=== PATIENT | male | born 1990 | race African-American/Black ===

== ENCOUNTER 2023-01-21 14:06 | Emergency (ER) | payer OTHER ==
[~2023-01-21] VITALS: Ht 180.3 cm; Wt 74.8 kg
[2023-01-21 14:49] LABS: BASOPHILS % (AUTO) 0.6 % (0.0-2.0); EOSINOPHILS # (AUTO) 0.1 K/uL (0.0-0.7); EOSINOPHILS % (AUTO) 2.4 % (0.0-6.0); HEMATOCRIT 38 % (39-51); HEMOGLOBIN 12.4 g/dL (13.5-17.5); LYMPHOCYTES # (AUTO) 1.5 K/uL (0.8-4.8); LYMPHOCYTES % (AUTO) 30.3 % (20.0-44.0); MEAN CORPUSCULAR HEMOGLOBIN 33 PG (26.0-33.0); MEAN CORPUSCULAR HGB CONC 33 g/dl (31.0-36.0); MEAN CORPUSCULAR VOLUME 100 fL (80-96); MONOCYTES # (AUTO) 0.6 K/uL (0.1-1.30); MONOCYTES % (AUTO) 11.6 % (2.0-12.0); NEUTROPHILS # (AUTO) 2.8 K/uL (1.8-8.9); NEUTROPHILS % (AUTO) 55.1 % (43.0-81.0); PLATELET COUNT (AUTO) 309 K/uL (150-450); RED BLOOD CELL COUNT(AUTO) 3.74 MIL/uL (4.5-6.0); RED CELL DISTRIBUTION WIDTH 14.6 % (11.5-15.0); WHITE BLOOD COUNT (AUTO) 5.1 K/uL (4.3-11.0)
[2023-01-21 14:56] LABS: CALCIUM, SERUM 8.4 mg/dL (8.5-10.1); CREATININE 0.7 mg/dL (0.6-1.3); POTASSIUM 3.6 mmol/L (3.5-5.1)
[2023-01-21 15:03] LABS: ALBUMIN 3.6 g/dL (3.4-5.0); BILIRUBIN,DIRECT 0.1 mg/dL (0.0-0.2); BILIRUBIN,TOTAL 0.2 mg/dL (0.2-1.0); SALICYLATE 0.9 mg/dL (2.8-20.0); TOTAL PROTEIN, SERUM 6.9 g/dL (6.4-8.2)
[2023-01-21 20:34] LABS: BARBITURATE, URINE NEGATIVE (NEGATIVE); BENZODIAZEPINE, URINE NEGATIVE (NEGATIVE); CANNABINOID, URINE NEGATIVE (NEGATIVE); COCCAINE, URINE NEGATIVE (NEGATIVE); OPIATE, URINE NEGATIVE (NEGATIVE); PHENCYCLIDINE SCREEN,URINE NEGATIVE (NEGATIVE)
[2023-01-21 20:35] LABS: AMPHETAMINE, URINE POSITIVE (NEGATIVE)
[2023-01-21 20:45] LABS: APPEARANCE,URINE CLEAR (CLEAR); BILIRUBIN,URINE NEGATIVE (NEGATIVE); BLOOD, URINE TRACE-INTA Ery/uL (NEGATIVE); COLOR,URINE YELLOW (YELLOW); KETONES,URINE TRACE mg/dL (NEGATIVE); LEUKOCYTE ESTERASE ,URINE NEGATIVE (NEGATIVE); NITRITE, URINE NEGATIVE (NEGATIVE); PH,URINE 5.5 (5.0-8.0); PROTEIN,URINE TRACE mg/dl (NEGATIVE); UGLUCOSE NEGATIVE (NEGATIVE)
[2023-01-21 20:54] LABS: ADD URINE CULTURE NO; BACTERIA,URINE 1+ /HPF (None Seen); MUCUS,URINE Few /LPF (None Seen); RBC,URINE 0-2 /HPF (0-2); SQUAMOUS EPITHELIAL CELL,UR None Seen /HPF (None Seen); WBC,URINE 0-2 /HPF (0-3)
[2023-01-21 21:14] VITALS: BP 131/85; TEMP 98.1; O2SAT 100
== END 2023-01-21 21:14 | disposition home or self-care (01) ==
LOC: ER 14:06
DX: F10.129 Alcohol abuse with intoxication, unspecified (principal); E11.9 Type 2 diabetes mellitus without complications; Y90.8 Blood alcohol level of 240 mg/100 ml or more
CPT/HCPCS: 36415; 80048-TC; 80076-TC; 81001; 82962-TC; 85025-TC; G0480

== ENCOUNTER 2024-06-09 20:02 | Inpatient (IN) | payer OTHER ==
[~2024-06-09] VITALS: Ht 180.3 cm; Wt 77.1 kg
[2024-06-09] MEDS ORDERED: CEFEPIME 1 GM VIAL ONE (21:03)
[2024-06-09] MEDS ORDERED: VANCOMYCIN 1 GM /D5W 250 ML PB IV ONE (21:03)
[2024-06-09] MEDS ORDERED: ACETAMINOPHEN ES 500 MG TABLET ONE (21:04)
[2024-06-09] MEDS ORDERED: IOHEXOL-300 100 ML VIAL IV ONE (21:11)
[2024-06-09] MEDS ORDERED: IV NS 0.9% 250 ML IV ONE (21:11)
[2024-06-09 21:14] LABS: BASOPHILS % (AUTO) 0.3 % (0.0-2.0); HEMATOCRIT 36 % (39-51); HEMOGLOBIN 11.9 g/dL (13.5-17.5); LYMPHOCYTES # (AUTO) 0.5 K/uL (0.8-4.8); LYMPHOCYTES % (AUTO) 8.7 % (20.0-44.0); MEAN CORPUSCULAR HEMOGLOBIN 33 PG (26.0-33.0); MEAN CORPUSCULAR HGB CONC 33 g/dl (31.0-36.0); MEAN CORPUSCULAR VOLUME 100 fL (80-96); MONOCYTES # (AUTO) 0.7 K/uL (0.1-1.30); MONOCYTES % (AUTO) 11.8 % (2.0-12.0); NEUTROPHILS # (AUTO) 4.4 K/uL (1.8-8.9); NEUTROPHILS % (AUTO) 79.2 % (43.0-81.0); PLATELET COUNT (AUTO) 236 K/uL (150-450); RED CELL DISTRIBUTION WIDTH 14.9 % (11.5-15.0); WHITE BLOOD COUNT (AUTO) 5.6 K/uL (4.3-11.0)
[2024-06-09] MEDS: CEFEPIME 1 GM in IV D5W 50 ML IV ONE (21:28)
[2024-06-09] MEDS: ACETAMINOPHEN ES 500 MG TABLET PO ONE (21:28)
[2024-06-09] MEDS: IV NS 0.9% 1,000 ML BAG IV ONE (21:29)
[2024-06-09] MEDS: VANCOMYCIN 1 GM in IV D5W 250 ML IV ONE (21:30)
[2024-06-09 21:32] LABS: LACTIC ACID 3.6 mmol/L (0.4-2.0)
[2024-06-09 21:34] LABS: CARBON DIOXIDE 27 mmol/L (21-32); CHLORIDE 97 mmol/L (98-107); CREATININE 0.8 mg/dL (0.6-1.3); GLUCOSE 89 mg/dL (74-106); POTASSIUM 3.3 mmol/L (3.5-5.1); SODIUM SERUM 135 mmol/L (136-145); UREA NITROGEN, BLOOD 11 mg/dL (7-18)
[2024-06-09 21:37] LABS: ALANINE AMINOTRANSFERASE 92 U/L (12-78); ALBUMIN 3.1 g/dL (3.4-5.0); ALKALINE PHOSPHATASE 77 U/L (46-116); ASPARTATE AMINOTRANSFERASE 118 U/L (15-37); BILIRUBIN,DIRECT 0.2 mg/dL (0.0-0.2); BILIRUBIN,TOTAL 0.5 mg/dL (0.2-1.0); NT-PRO BNP 53 pg/mL (0-125)
[2024-06-09 21:45] LABS: INR 1.08 (0.91-1.10); PARTIAL THROMBOPLASTIN TIME 32.3 SEC (24.3-34.3); PROTHROMBIN TIME 11.4 SECS (9.2-11.1)
[2024-06-09] MEDS ORDERED: POTASSIUM CHLORIDE 20 MEQ TAB.PRT.SR PO ONE (22:45)
[2024-06-09] MEDS: POTASSIUM CHLORIDE 20 MEQ TAB.PRT.SR PO ONE (22:49)
[2024-06-09 23:02] LABS: BAND % (MANUAL) 3 % (0.0-5.0); LYMPHOCYTES % (MANUAL) 11 % (16-48); MONOCYTES % (MANUAL) 8 % (0-11.0); NEUTROPHILS % (MANUAL) 78 (42-76); PLATELET ESTIMATE ADEQUATE
[2024-06-09 23:05] LABS: STOMATOCYTES 1+
[2024-06-09 23:27] LABS: APPEARANCE,URINE CLEAR (CLEAR); BILIRUBIN,URINE 1+ (NEGATIVE); BLOOD, URINE NEGATIVE Ery/uL (NEGATIVE); COLOR,URINE YELLOW (YELLOW); KETONES,URINE 3+ mg/dL (NEGATIVE); LEUKOCYTE ESTERASE ,URINE NEGATIVE (NEGATIVE); NITRITE, URINE NEGATIVE (NEGATIVE); PROTEIN,URINE 2+ mg/dl (NEGATIVE); UGLUCOSE NEGATIVE (NEGATIVE)
[2024-06-09 23:40] LABS: AMPHETAMINE, URINE NEGATIVE (NEGATIVE); BARBITURATE, URINE NEGATIVE (NEGATIVE); BENZODIAZEPINE, URINE NEGATIVE (NEGATIVE); COCCAINE, URINE NEGATIVE (NEGATIVE); OPIATE, URINE NEGATIVE (NEGATIVE); PHENCYCLIDINE SCREEN,URINE NEGATIVE (NEGATIVE)
[2024-06-09 23:41] LABS: CANNABINOID, URINE POSITIVE (NEGATIVE)
[2024-06-10] VITALS: BP 144/83; TEMP 98.8; O2SAT 98
[2024-06-10 00:30] LABS: ADD URINE CULTURE NO; BACTERIA,URINE Few /HPF (None Seen); SQUAMOUS EPITHELIAL CELL,UR Few /HPF (None Seen); WBC,URINE 0-2 /HPF (0-3)
[2024-06-10] MEDS ORDERED: MAGNESIUM HYDROXIDE 30 ML UDC PO PRN (01:30)
[2024-06-10] MEDS ORDERED: ZOLPIDEM TARTRATE 5 MG TABLET PO PRN (01:30)
[2024-06-10] MEDS ORDERED: Z GUARD REMEDY 4 OZ OINT TP PRN (01:30)
[2024-06-10] MEDS ORDERED: MAG HYDROX/AL HYDROX/SIMETH 30 ML UDC PO PRN (01:30)
[2024-06-10] MEDS ORDERED: CEFEPIME 1 GM in IV D5W 50 ML IV SCH (01:30)
[2024-06-10] MEDS: IV NS 0.9% 1,000 ML IV PRN ×2 (02:39→13:25)
[2024-06-10 04:00] VITALS: BP 120/64; TEMP 99; O2SAT 97
[2024-06-10 06:45] LABS: BASOPHILS % (AUTO) 0.4 % (0.0-2.0); EOSINOPHILS % (AUTO) 0.3 % (0.0-6.0); HEMATOCRIT 32 % (39-51); HEMOGLOBIN 11.1 g/dL (13.5-17.5); LYMPHOCYTES # (AUTO) 0.7 K/uL (0.8-4.8); LYMPHOCYTES % (AUTO) 14.9 % (20.0-44.0); MEAN CORPUSCULAR HEMOGLOBIN 35 PG (26.0-33.0); MEAN CORPUSCULAR HGB CONC 35 g/dl (31.0-36.0); MEAN CORPUSCULAR VOLUME 100 fL (80-96); MONOCYTES # (AUTO) 0.6 K/uL (0.1-1.30); MONOCYTES % (AUTO) 13.5 % (2.0-12.0); NEUTROPHILS # (AUTO) 3.2 K/uL (1.8-8.9); NEUTROPHILS % (AUTO) 70.9 % (43.0-81.0); PLATELET COUNT (AUTO) 231 K/uL (150-450); RED CELL DISTRIBUTION WIDTH 14.6 % (11.5-15.0); WHITE BLOOD COUNT (AUTO) 4.5 K/uL (4.3-11.0)
[2024-06-10 07:17] LABS: CALCIUM, SERUM 8.2 mg/dL (8.5-10.1); CREATININE 0.7 mg/dL (0.6-1.3); POTASSIUM 3.1 mmol/L (3.5-5.1)
[2024-06-10 08:00] VITALS: BP 124/73; TEMP 102.2; O2SAT 98
[2024-06-10] MEDS: VANCOMYCIN 750 MG in IV D5W 250 ML IV ONE (08:42)
[2024-06-10] MEDS: ACETAMINOPHEN 325 MG TABLET PO PRN (08:42)
[2024-06-10] MEDS: POTASSIUM CHLORIDE 20 MEQ TAB.PRT.SR PO ONE (09:29)
[2024-06-10] MEDS: CEFEPIME 2 GM in IV D5W 100 ML IV SCH (09:30)
[2024-06-10 09:32] LABS: MAGNESIUM 1.3 mg/dL (1.8-2.4)
[2024-06-10 12:00] VITALS: BP 111/68; TEMP 99.3; O2SAT 97
[2024-06-10 16:00] VITALS: BP 121/79; TEMP 101.1; O2SAT 100
[2024-06-10] MEDS: VANCOMYCIN HCL 1.25 GM in IV D5W 250 ML IV SCH (16:25)
[2024-06-10 16:42] LABS: OCCULT BLOOD STOOL POSITIVE (NEGATIVE)
[2024-06-10] MEDS: GABAPENTIN 100 MG CAPSULE PO SCH (18:08)
[2024-06-10 20:00] VITALS: BP 115/78; TEMP 99.8; O2SAT 99
[2024-06-10] MEDS: Magnesium 1GM/D5W 100ML PREMIX 100 ML IV SCH (21:46)
[2024-06-11] VITALS: BP 124/85; TEMP 100.9; O2SAT 100
[2024-06-11 04:00] VITALS: BP 120/78; TEMP 99.7; O2SAT 97
[2024-06-11 06:51] LABS: BASOPHILS % (AUTO) 0.6 % (0.0-2.0); EOSINOPHILS # (AUTO) 0.1 K/uL (0.0-0.7); EOSINOPHILS % (AUTO) 2.7 % (0.0-6.0); HEMATOCRIT 33 % (39-51); HEMOGLOBIN 11.3 g/dL (13.5-17.5); LYMPHOCYTES # (AUTO) 0.9 K/uL (0.8-4.8); LYMPHOCYTES % (AUTO) 28.5 % (20.0-44.0); MEAN CORPUSCULAR HEMOGLOBIN 34 PG (26.0-33.0); MEAN CORPUSCULAR HGB CONC 35 g/dl (31.0-36.0); MEAN CORPUSCULAR VOLUME 100 fL (80-96); MONOCYTES # (AUTO) 0.5 K/uL (0.1-1.30); MONOCYTES % (AUTO) 16.4 % (2.0-12.0); NEUTROPHILS # (AUTO) 1.7 K/uL (1.8-8.9); NEUTROPHILS % (AUTO) 51.8 % (43.0-81.0); PLATELET COUNT (AUTO) 249 K/uL (150-450); RED BLOOD CELL COUNT(AUTO) 3.28 MIL/uL (4.5-6.0); RED CELL DISTRIBUTION WIDTH 14.6 % (11.5-15.0); WHITE BLOOD COUNT (AUTO) 3.3 K/uL (4.3-11.0)
[2024-06-11 07:17] LABS: CREATININE 0.8 mg/dL (0.6-1.3); MAGNESIUM 1.7 mg/dL (1.8-2.4); PHOSPHORUS 1.7 mg/dL (2.5-4.9)
[2024-06-11 08:00] VITALS: BP 120/78; TEMP 100.4; O2SAT 97
[2024-06-11 08:00] LABS: POTASSIUM 2.8 mmol/L (3.5-5.1)
[2024-06-11] MEDS: POTASSIUM CHLORIDE 20 MEQ TAB.PRT.SR PO SCH (10:00)
[2024-06-11] MEDS: MAGNESIUM OXIDE 400 MG TABLET PO ONE (10:01)
[2024-06-11 10:18] LABS: BAND % (MANUAL) 1 % (0.0-5.0); EOSINOPHILS % (MANUAL) 3 % (0-4); LYMPHOCYTES % (MANUAL) 24 % (16-48); MONOCYTES % (MANUAL) 9 % (0-11.0); NEUTROPHILS % (MANUAL) 63 (42-76)
[2024-06-11 10:19] LABS: ANISOCYTOSIS 1+; PLATELET ESTIMATE ADEQUATE; STOMATOCYTES 1+
[2024-06-11 12:00] VITALS: BP 121/84; TEMP 98.6; O2SAT 99
[2024-06-11] MEDS: K PHOS NEUTRAL 250 MG TABLET PO ONE (15:47)
[2024-06-11 16:00] VITALS: BP 128/80; TEMP 98.8; O2SAT 99
[2024-06-11 16:21] LABS: HIV-1 p24 ANTIGEN NON REACTIVE (NONREACTIVE); HIV-1/2 ANTIBODY NON REACTIVE (NONREACTIVE)
[2024-06-11 20:00] VITALS: BP 126/90; TEMP 99.5; O2SAT 100
[2024-06-12] VITALS: BP 121/84; TEMP 99.1; O2SAT 100
[2024-06-12 04:00] VITALS: BP 120/83; TEMP 99.5; O2SAT 98
[2024-06-12 04:11] LABS: HBSAG SCREEN Negative (Negative); HEPATITIS A AB, IgM Negative (Negative); HEPATITIS B CORE AB, IgM Negative (Negative)
[2024-06-12 07:00] LABS: LACTIC ACID 2.5 mmol/L (0.4-2.0)
[2024-06-12 07:07] LABS: CALCIUM, SERUM 8.2 mg/dL (8.5-10.1); CREATININE 0.8 mg/dL (0.6-1.3); MAGNESIUM 1.6 mg/dL (1.8-2.4); PHOSPHORUS 2.1 mg/dL (2.5-4.9); POTASSIUM 3.1 mmol/L (3.5-5.1)
[2024-06-12 07:14] LABS: BASOPHILS % (AUTO) 0.6 % (0.0-2.0); EOSINOPHILS # (AUTO) 0.2 K/uL (0.0-0.7); EOSINOPHILS % (AUTO) 4.6 % (0.0-6.0); HEMATOCRIT 34 % (39-51); HEMOGLOBIN 11.6 g/dL (13.5-17.5); LYMPHOCYTES # (AUTO) 1.2 K/uL (0.8-4.8); LYMPHOCYTES % (AUTO) 33.2 % (20.0-44.0); MEAN CORPUSCULAR HEMOGLOBIN 34 PG (26.0-33.0); MEAN CORPUSCULAR HGB CONC 34 g/dl (31.0-36.0); MEAN CORPUSCULAR VOLUME 101 fL (80-96); MONOCYTES # (AUTO) 0.7 K/uL (0.1-1.30); MONOCYTES % (AUTO) 18.9 % (2.0-12.0); NEUTROPHILS # (AUTO) 1.5 K/uL (1.8-8.9); NEUTROPHILS % (AUTO) 42.7 % (43.0-81.0); PLATELET COUNT (AUTO) 267 K/uL (150-450); RED BLOOD CELL COUNT(AUTO) 3.36 MIL/uL (4.5-6.0); RED CELL DISTRIBUTION WIDTH 14.7 % (11.5-15.0); WHITE BLOOD COUNT (AUTO) 3.6 K/uL (4.3-11.0)
[2024-06-12 08:00] VITALS: BP 131/87; TEMP 99.7; O2SAT 97
[2024-06-12 10:24] LABS: BILIRUBIN,DIRECT 0.1 mg/dL (0.0-0.2); BILIRUBIN,TOTAL 0.3 mg/dL (0.2-1.0)
[2024-06-12] MEDS: POTASSIUM CHLORIDE 20 MEQ TAB.PRT.SR PO SCH (10:35)
[2024-06-12] MEDS: MAGNESIUM OXIDE 400 MG TABLET PO ONE (10:35)
[2024-06-12 10:51] LABS: LACTIC ACID REFLEX 1.4 mmol/L (0.4-1.9)
[2024-06-12] MEDS: CEFTRIAXONE 1 G in IV D5W 50 ML IV SCH (12:15)
[2024-06-12] MEDS: K PHOS NEUTRAL 250 MG TABLET PO ONE (15:45)
[2024-06-12 16:00] VITALS: BP 125/82; TEMP 98.4; O2SAT 97
[2024-06-12 22:00] VITALS: BP 120/73; TEMP 98.4; O2SAT 98
[2024-06-13 04:00] VITALS: BP 110/77; TEMP 98.2; O2SAT 98
[2024-06-13 07:01] LABS: CALCIUM, SERUM 8.3 mg/dL (8.5-10.1); CREATININE 0.7 mg/dL (0.6-1.3); MAGNESIUM 1.6 mg/dL (1.8-2.4); PHOSPHORUS 3.9 mg/dL (2.5-4.9); POTASSIUM 3.1 mmol/L (3.5-5.1)
[2024-06-13 08:00] VITALS: BP 122/79; TEMP 98.5; O2SAT 98
[2024-06-13] MEDS ORDERED: MAGNESIUM OXIDE 400 MG TABLET PO SCH (11:30)
[2024-06-13] MEDS: POTASSIUM CHLORIDE 20 MEQ TAB.PRT.SR PO ONE (11:57)
[2024-06-13] MEDS: MAGNESIUM OXIDE 400 MG TABLET PO ONE (12:10)
[2024-06-13 15:07] LABS: *HIV-1 RNA BY PCR <20 copies/mL (.)
[2024-06-13 16:00] VITALS: BP 124/89; TEMP 97.9; O2SAT 97
[2024-06-13 20:00] VITALS: BP 129/89; TEMP 98.2; O2SAT 100
[2024-06-14 04:00] VITALS: BP 132/87; TEMP 98.2; O2SAT 100
[2024-06-14 07:21] LABS: CALCIUM, SERUM 8.4 mg/dL (8.5-10.1); CREATININE 0.7 mg/dL (0.6-1.3); POTASSIUM 3.2 mmol/L (3.5-5.1)
[2024-06-14 07:43] LABS: BASOPHILS % (AUTO) 0.7 % (0.0-2.0); EOSINOPHILS # (AUTO) 0.2 K/uL (0.0-0.7); EOSINOPHILS % (AUTO) 4.2 % (0.0-6.0); HEMATOCRIT 34 % (39-51); HEMOGLOBIN 11.7 g/dL (13.5-17.5); LYMPHOCYTES # (AUTO) 1.8 K/uL (0.8-4.8); LYMPHOCYTES % (AUTO) 37.8 % (20.0-44.0); MEAN CORPUSCULAR HEMOGLOBIN 34 PG (26.0-33.0); MEAN CORPUSCULAR HGB CONC 35 g/dl (31.0-36.0); MEAN CORPUSCULAR VOLUME 99 fL (80-96); MONOCYTES # (AUTO) 0.9 K/uL (0.1-1.30); MONOCYTES % (AUTO) 19.9 % (2.0-12.0); NEUTROPHILS # (AUTO) 1.8 K/uL (1.8-8.9); NEUTROPHILS % (AUTO) 37.4 % (43.0-81.0); PLATELET COUNT (AUTO) 347 K/uL (150-450); RED BLOOD CELL COUNT(AUTO) 3.42 MIL/uL (4.5-6.0); RED CELL DISTRIBUTION WIDTH 14.6 % (11.5-15.0); WHITE BLOOD COUNT (AUTO) 4.8 K/uL (4.3-11.0)
[2024-06-14 08:00] VITALS: BP 143/87; TEMP 99.3; O2SAT 100
[2024-06-14] MEDS: LOPERAMIDE HCL (2 MG CAP) 2 MG CAPSULE PO PRN (09:12)
[2024-06-14] MEDS: ONDANSETRON HCL/PF 4 MG/2 ML VIAL IVP PRN (09:13)
[2024-06-14 09:15] LABS: ANISOCYTOSIS 1+; EOSINOPHILS % (MANUAL) 6 % (0-4); LYMPHOCYTES % (MANUAL) 40 % (16-48); MONOCYTES % (MANUAL) 12 % (0-11.0); NEUTROPHILS % (MANUAL) 42 (42-76); PLATELET ESTIMATE ADEQUATE
[2024-06-14] MEDS ORDERED: POTASSIUM CHLORIDE 20 MEQ TAB.PRT.SR PO SCH (13:00)
== END 2024-06-14 13:05 | disposition home or self-care (01) | DRG 249 ==
LOC: ER 20:05 → TELE 22:01 → TELE1 22:02 → MEDSG1 06-12 10:05
PROVIDERS: ADMIT Internal Medicine
DX: A08.4 Viral intestinal infection, unspecified (principal); E87.20 Acidosis, unspecified; Z87.820 Personal history of traumatic brain injury; E87.6 Hypokalemia; D53.9 Nutritional anemia, unspecified; I10 Essential (primary) hypertension; Z87.891 Personal history of nicotine dependence; R74.01 Elevation of levels of liver transaminase levels; F10.21 Alcohol dependence, in remission; F15.11 Other stimulant abuse, in remission; R50.9 Fever, unspecified; Z20.822 Contact with and (suspected) exposure to COVID-19
CPT/HCPCS: 36415; 71045-TC; 80048-TC; 80076-TC; 80202-TC; 81001; 82247-TC; 82248-TC; 82272-TC; 82550-TC; 82607-TC; 83605-TC; 83690-TC; 83735-TC; 83880; 84100-TC; 84484-TC; 85025-TC; 85730-TC; 87040-TC; 87045-TC; 87081-TC; 87086-TC; 87536; 87806; 89055; A4223; G0378; J0692; J0696; J2405; J3370; J3371; J3475; J7030; J7050; J7060; Q9967

== ENCOUNTER 2024-08-11 00:24 | Emergency (ER) | payer MEDICAID, OTHER ==
[~2024-08-11] VITALS: Ht 177.8 cm; Wt 70.3 kg
[2024-08-11] MEDS ORDERED: ONDANSETRON HCL/PF 4 MG/2 ML VIAL ONE (03:51)
[2024-08-11] MEDS: ONDANSETRON HCL/PF 4 MG/2 ML VIAL IV ONE (03:59)
[2024-08-11] MEDS: IV LR 1000 ML 1,000 ML BAG IV ONE (03:59)
[2024-08-11 04:19] LABS: BASOPHILS # (AUTO) 0.1 K/uL (0.0-0.2); BASOPHILS % (AUTO) 1.4 % (0.0-2.0); EOSINOPHILS # (AUTO) 0.1 K/uL (0.0-0.7); EOSINOPHILS % (AUTO) 1.7 % (0.0-6.0); HEMATOCRIT 36 % (39-51); HEMOGLOBIN 12.2 g/dL (13.5-17.5); LYMPHOCYTES # (AUTO) 1.6 K/uL (0.8-4.8); LYMPHOCYTES % (AUTO) 42.5 % (20.0-44.0); MEAN CORPUSCULAR HEMOGLOBIN 33 PG (26.0-33.0); MEAN CORPUSCULAR HGB CONC 34 g/dl (31.0-36.0); MEAN CORPUSCULAR VOLUME 98 fL (80-96); MONOCYTES # (AUTO) 0.4 K/uL (0.1-1.30); MONOCYTES % (AUTO) 11.6 % (2.0-12.0); NEUTROPHILS # (AUTO) 1.6 K/uL (1.8-8.9); NEUTROPHILS % (AUTO) 42.8 % (43.0-81.0); PLATELET COUNT (AUTO) 247 K/uL (150-450); RED BLOOD CELL COUNT(AUTO) 3.71 MIL/uL (4.5-6.0); RED CELL DISTRIBUTION WIDTH 15.2 % (11.5-15.0); WHITE BLOOD COUNT (AUTO) 3.7 K/uL (4.3-11.0)
[2024-08-11 04:28] LABS: CALCIUM, SERUM 8.9 mg/dL (8.5-10.1); CREATININE 0.8 mg/dL (0.6-1.3); POTASSIUM 3.6 mmol/L (3.5-5.1)
[2024-08-11 04:34] LABS: ALBUMIN 3.8 g/dL (3.4-5.0); BILIRUBIN,DIRECT 0.3 mg/dL (0.0-0.2); BILIRUBIN,TOTAL 1.1 mg/dL (0.2-1.0); TOTAL PROTEIN, SERUM 7.3 g/dL (6.4-8.2)
[2024-08-11] MEDS ORDERED: MORPHINE SULFATE INJ 4 MG/ML DISP.SYRIN ONE (05:04)
[2024-08-11] MEDS: MORPHINE SULFATE INJ 2 MG/ML DISP.SYRIN IV ONE (05:07)
[2024-08-11] MEDS ORDERED: ONDA4TAB5 PO (07:39)
[2024-08-11] MEDS ORDERED: BENZ-13 PO (07:39)
[2024-08-11 08:03] VITALS: BP 132/80; TEMP 98.2; O2SAT 97
== END 2024-08-11 08:03 | disposition home or self-care (01) ==
LOC: ER 00:25
DX: R05.9 Cough, unspecified (principal); R10.13 Epigastric pain; R11.2 Nausea with vomiting, unspecified; R19.7 Diarrhea, unspecified; Z79.899 Other long term (current) drug therapy; Z91.010 Allergy to peanuts; Z91.018 Allergy to other foods; Z20.822 Contact with and (suspected) exposure to COVID-19
CPT/HCPCS: 99285; 96374; 76700; 71045; 96361; 96375; 87426; 87804 ×2; 85025; 80048; 83690; 80076; 36415; J2270; J2405; J7120 ×2

== ENCOUNTER 2024-10-27 19:52 | Emergency (ER) | payer MEDICAID ==
[~2024-10-27] VITALS: Ht 182.9 cm; Wt 63.5 kg
[~2024-10-27 19:52] MED LIST: BENZ-13 PO; ONDA4TAB5 PO
[2024-10-27] MEDS ORDERED: HYDROCODONE/APAP 5/325MG TABLET ONE (20:46)
[2024-10-27] MEDS: HYDROCODONE/APAP 5/325MG TABLET PO ONE (20:50)
[2024-10-27] MEDS ORDERED: ACET-2030 PO (21:42)
[2024-10-27] MEDS ORDERED: IBUP-76 PO (21:42)
[2024-10-27] MEDS ORDERED: LIDO30AD10 TP (21:42)
[2024-10-27] MEDS ORDERED: KETOROLAC TROMETHAMINE INJ 30 MG/ML VIAL ONE (21:52)
[2024-10-27] MEDS: KETOROLAC TROMETHAMINE INJ 30 MG/ML VIAL IM ONE (21:59)
[2024-10-27 22:07] VITALS: BP 120/85; TEMP 98; O2SAT 98
== END 2024-10-27 22:08 | disposition home or self-care (01) ==
LOC: ER 19:56
DX: S05.12XA Contusion of eyeball and orbital tissues, left eye, initial encounter (principal); Z87.820 Personal history of traumatic brain injury; Z91.010 Allergy to peanuts; Z91.018 Allergy to other foods; Z87.39 Personal history of other diseases of the musculoskeletal system and connective tissue; Z86.59 Personal history of other mental and behavioral disorders; Y04.0XXA Assault by unarmed brawl or fight, initial encounter; Y93.89 Activity, other specified; Y92.811 Bus as the place of occurrence of the external cause; Y99.8 Other external cause status
CPT/HCPCS: 99285; 72125; 96372; 70450; 70486; L0172; J1885

== ENCOUNTER 2024-12-30 01:50 | Inpatient (IN) | payer MEDICAID, OTHER ==
[~2024-12-30] VITALS: Ht 180.3 cm; Wt 68.0 kg
[~2024-12-30 01:50] MED LIST changes: +ACET-2030 PO; +IBUP-76 PO; +LIDO30AD10 TP
[2024-12-30 02:57] LABS: PLATELET COUNT (AUTO) 235 K/uL (150-450); RED BLOOD CELL COUNT(AUTO) 3.53 MIL/uL (4.5-6.0); RED CELL DISTRIBUTION WIDTH 14.6 % (11.5-15.0); WHITE BLOOD COUNT (AUTO) 3.4 K/uL (4.3-11.0)
[2024-12-30 03:04] LABS: SERUM AMMONIA 22.0 umol/L (11-32)
[2024-12-30 03:05] LABS: CALCIUM, SERUM 8.7 mg/dL (8.5-10.1); CREATININE 0.8 mg/dL (0.6-1.3); SODIUM SERUM 148 mmol/L (136-145); UREA NITROGEN, BLOOD 10 mg/dL (7-18)
[2024-12-30] MEDS: IV NS 0.9% 1,000 ML BAG IV ONE ×3 (03:05→04:21)
[2024-12-30 03:09] LABS: ALCOHOL, BLOOD 614.0 mg/dL (0-10)
[2024-12-30 03:15] LABS: ALCOHOL, BLOOD 625 mg/dL (0-10); ASPARTATE AMINOTRANSFERASE 259 U/L (15-37); TOTAL PROTEIN, SERUM 7.3 g/dL (6.4-8.2)
[2024-12-30 03:37] LABS: APPEARANCE,URINE CLEAR (CLEAR); BLOOD, URINE NEGATIVE Ery/uL (NEGATIVE); LEUKOCYTE ESTERASE ,URINE NEGATIVE (NEGATIVE); NITRITE, URINE NEGATIVE (NEGATIVE); UGLUCOSE NEGATIVE (NEGATIVE)
[2024-12-30 03:47] LABS: ADD URINE CULTURE NO
[2024-12-30 03:48] LABS: SQUAMOUS EPITHELIAL CELL,UR 0-2 /HPF (None Seen)
[2024-12-30 03:51] LABS: AMPHETAMINE, URINE NEGATIVE (NEGATIVE); BARBITURATE, URINE NEGATIVE (NEGATIVE); BENZODIAZEPINE, URINE NEGATIVE (NEGATIVE); CANNABINOID, URINE NEGATIVE (NEGATIVE); COCCAINE, URINE NEGATIVE (NEGATIVE); OPIATE, URINE NEGATIVE (NEGATIVE)
[2024-12-30] MEDS ORDERED: Z GUARD REMEDY 4 OZ OINT TP PRN (04:30)
[2024-12-30] MEDS ORDERED: Thiamine 300 MG in IV D5W 50 ML IV ONE (04:30)
[2024-12-30 06:23] LABS: PLATELET COUNT (AUTO) 225 K/uL (150-450); RED BLOOD CELL COUNT(AUTO) 3.12 MIL/uL (4.5-6.0); RED CELL DISTRIBUTION WIDTH 14.2 % (11.5-15.0); WHITE BLOOD COUNT (AUTO) 3.1 K/uL (4.3-11.0)
[2024-12-30 06:33] LABS: CALCIUM, SERUM 7.7 mg/dL (8.5-10.1); CREATININE 0.7 mg/dL (0.6-1.3); PHOSPHORUS 4.5 mg/dL (2.5-4.9); SODIUM SERUM 148.0 mmol/L (136-145); UREA NITROGEN, BLOOD 8.0 mg/dL (7-18)
[2024-12-30] MEDS: IV LR 1000 ML 1,000 ML IV SCH (07:30)
[2024-12-30] MEDS: Magnesium 1GM/D5W 100ML PREMIX 100 ML IV SCH ×2 (07:31→09:56)
[2024-12-30 08:34] VITALS: BP 99/69; TEMP 97; O2SAT 97
[2024-12-30] MEDS ORDERED: THIAMINE HCL 100 MG TABLET PO SCH (09:00)
[2024-12-30] MEDS: FOLIC ACID 1 MG TABLET PO SCH (09:53)
[2024-12-30] MEDS: POTASSIUM CHLORIDE 20 MEQ TAB.PRT.SR PO ONE (09:53)
[2024-12-30] MEDS: PANTOPRAZOLE 40 MG TABLET.DR PO SCH (09:55)
[2024-12-30] MEDS: THIAMINE HCL 100 MG TABLET PO SCH (09:58)
[2024-12-30] MEDS: IV 1/2NS 1000 ML 1,000 ML IV SCH (11:48)
[2024-12-30] MEDS: ONDANSETRON HCL/PF 4 MG/2 ML VIAL IVP PRN (18:19)
[2024-12-30 18:31] VITALS: BP 114/68; TEMP 98.2; O2SAT 97
[2024-12-30 20:00] VITALS: BP 117/82; TEMP 97.9; O2SAT 100
[2024-12-31] VITALS: BP 116/74; TEMP 98.2; O2SAT 99
[2024-12-31] MEDS: ACETAMINOPHEN 325 MG TABLET PO PRN (00:43)
[2024-12-31 04:00] VITALS: BP 118/74; TEMP 97.7; O2SAT 98
[2024-12-31 05:56] LABS: PLATELET COUNT (AUTO) 253 K/uL (150-450); RED BLOOD CELL COUNT(AUTO) 3.26 MIL/uL (4.5-6.0); RED CELL DISTRIBUTION WIDTH 14.0 % (11.5-15.0); WHITE BLOOD COUNT (AUTO) 4.9 K/uL (4.3-11.0)
[2024-12-31 06:04] LABS: CALCIUM, SERUM 8.4 mg/dL (8.5-10.1); CREATININE 0.7 mg/dL (0.6-1.3); SODIUM SERUM 143.0 mmol/L (136-145); UREA NITROGEN, BLOOD 7.0 mg/dL (7-18)
[2024-12-31 08:00] VITALS: BP 135/92; TEMP 98.4; O2SAT 98
[2024-12-31] MEDS: PHENOBARBITAL 30 MG TABLET PO ONE (11:35)
[2024-12-31 12:00] VITALS: BP 127/82; TEMP 99; O2SAT 99
[2024-12-31] MEDS: LORAZEPAM 1 MG TABLET PO PRN (13:03)
[2024-12-31 15:28] LABS: INR 1.1 (0.91-1.10)
[2024-12-31 16:00] VITALS: BP 128/86; TEMP 98.4; O2SAT 98
[2024-12-31 20:00] VITALS: BP 128/88; TEMP 98.8; O2SAT 99
[2024-12-31] MEDS ORDERED: MENTHOL/CETYLPYRD (CEPACOL) 1 LOZ LOZENGE PO PRN (21:00)
[2025-01-01 06:11] LABS: PLATELET COUNT (AUTO) 228 K/uL (150-450); RED BLOOD CELL COUNT(AUTO) 3.27 MIL/uL (4.5-6.0); RED CELL DISTRIBUTION WIDTH 13.6 % (11.5-15.0); WHITE BLOOD COUNT (AUTO) 4.5 K/uL (4.3-11.0)
[2025-01-01 06:16] LABS: CALCIUM, SERUM 8.9 mg/dL (8.5-10.1); CREATININE 0.8 mg/dL (0.6-1.3); SODIUM SERUM 135.0 mmol/L (136-145); UREA NITROGEN, BLOOD 7.0 mg/dL (7-18)
[2025-01-01 07:30] VITALS: BP 152/101; TEMP 98.8; O2SAT 96
[2025-01-01] MEDS ORDERED: THIA100T74 PO (13:18)
[2025-01-01] MEDS ORDERED: CHLO25CA22 PO (13:18)
[2025-01-01] MEDS: CHLORDIAZEPOXIDE HCL 25 MG CAPSULE PO ONE (13:39)
[2025-01-01 16:00] VITALS: BP 201/88; TEMP 98.6; O2SAT 97
== END 2025-01-01 13:30 | disposition home or self-care (01) | DRG 422 ==
LOC: ER 01:51 → TELE 04:34 → MED 12-31 11:51
PROVIDERS: ADMIT Internal Medicine; ATTEND Nurse Practitioner Acute Care
DX: E86.1 Hypovolemia (principal); G92.9 Unspecified toxic encephalopathy; E87.0 Hyperosmolality and hypernatremia; T68.XXXA Hypothermia, initial encounter; F10.129 Alcohol abuse with intoxication, unspecified; B35.1 Tinea unguium; E87.6 Hypokalemia; F10.139 Alcohol abuse with withdrawal, unspecified; K62.5 Hemorrhage of anus and rectum; K70.10 Alcoholic hepatitis without ascites; Y90.8 Blood alcohol level of 240 mg/100 ml or more; Z87.820 Personal history of traumatic brain injury; Z87.891 Personal history of nicotine dependence; Z91.010 Allergy to peanuts; L84 Corns and callosities; R74.01 Elevation of levels of liver transaminase levels; K64.9 Unspecified hemorrhoids
CPT/HCPCS: 36415; 70450-TC; 71045-TC; 80048-TC; 80076-TC; 81001; 82140-TC; 82962-TC; 83735-TC; 84100-TC; 84443-TC; 85025-TC; 85610-TC; 87081-TC; 92526; 92611; A4223; G0378; G0480; J2405; J3411; J3475; J3490; J7030; J7060; J7120

== ENCOUNTER 2025-01-24 01:43 | Emergency (ER) | payer OTHER ==
[~2025-01-24] VITALS: Ht 180.3 cm; Wt 72.6 kg
[~2025-01-24 01:43] MED LIST changes: -ACET-2030 PO; -BENZ-13 PO; +CHLO25CA22 PO; -IBUP-76 PO; -LIDO30AD10 TP; -ONDA4TAB5 PO; +THIA100T74 PO
[2025-01-24] MEDS ORDERED: ONDANSETRON HCL/PF 4 MG/2 ML VIAL ONE (02:30)
[2025-01-24] MEDS ORDERED: KETOROLAC TROMETHAMINE 15 MG/ML VIAL ONE (02:30)
[2025-01-24] MEDS: KETOROLAC TROMETHAMINE 15 MG/ML VIAL IV ONE (02:35)
[2025-01-24] MEDS: ONDANSETRON HCL/PF 4 MG/2 ML VIAL IVP ONE (02:35)
[2025-01-24] MEDS: IV NS 0.9% 1,000 ML BAG IV ONE (02:35)
[2025-01-24 02:45] LABS: PLATELET COUNT (AUTO) 328 K/uL (150-450); RED BLOOD CELL COUNT(AUTO) 3.72 MIL/uL (4.5-6.0); RED CELL DISTRIBUTION WIDTH 15.1 % (11.5-15.0); WHITE BLOOD COUNT (AUTO) 8.5 K/uL (4.3-11.0)
[2025-01-24 02:57] LABS: ASPARTATE AMINOTRANSFERASE 139.0 U/L (15-37); CALCIUM, SERUM 8.6 mg/dL (8.5-10.1); CREATININE 0.7 mg/dL (0.6-1.3); SODIUM SERUM 147.0 mmol/L (136-145); TOTAL PROTEIN, SERUM 7.7 g/dL (6.4-8.2); UREA NITROGEN, BLOOD 11.0 mg/dL (7-18)
[2025-01-24] MEDS ORDERED: ONDA4TAB5 PO (04:21)
[2025-01-24 04:31] LABS: APPEARANCE,URINE CLEAR (CLEAR); BLOOD, URINE NEGATIVE Ery/uL (NEGATIVE); LEUKOCYTE ESTERASE ,URINE NEGATIVE (NEGATIVE); NITRITE, URINE NEGATIVE (NEGATIVE); UGLUCOSE NEGATIVE (NEGATIVE)
[2025-01-24 04:32] LABS: AMPHETAMINE, URINE NEGATIVE (NEGATIVE); BARBITURATE, URINE NEGATIVE (NEGATIVE); CANNABINOID, URINE NEGATIVE (NEGATIVE); COCCAINE, URINE NEGATIVE (NEGATIVE); OPIATE, URINE NEGATIVE (NEGATIVE)
[2025-01-24 04:38] LABS: BENZODIAZEPINE, URINE POSITIVE (NEGATIVE)
[2025-01-24 04:39] LABS: ADD URINE CULTURE NO; SQUAMOUS EPITHELIAL CELL,UR None Seen /HPF (None Seen)
[2025-01-24 05:57] VITALS: BP 129/91; TEMP 97.7; O2SAT 99
== END 2025-01-24 05:59 | disposition home or self-care (01) ==
LOC: ER 01:50
DX: F10.129 Alcohol abuse with intoxication, unspecified (principal); K52.9 Noninfective gastroenteritis and colitis, unspecified; K43.9 Ventral hernia without obstruction or gangrene; K44.9 Diaphragmatic hernia without obstruction or gangrene; K76.0 Fatty (change of) liver, not elsewhere classified; Z91.010 Allergy to peanuts; Z87.820 Personal history of traumatic brain injury; Z20.822 Contact with and (suspected) exposure to COVID-19; Z79.899 Other long term (current) drug therapy; Y90.8 Blood alcohol level of 240 mg/100 ml or more
CPT/HCPCS: 99285; 96374; 96361; 96375; 74176; 85025; 80048; 83690; 80076; 81001; 36415; 87426; 80320; 80307; J2405; J7030; J1885; G0480